=== PATIENT | female | born 1965 | race Caucasian/White ===

== ENCOUNTER → 2023-09-15 | Outpatient (CLI) | payer BC | END | disposition home or self-care (01) | LOC: RAD 14:49 | PROVIDERS: ATTEND Nurse Practitioner Family | DX: K82.4 Cholesterolosis of gallbladder (principal); N85.4 Malposition of uterus; D18.09 Hemangioma of other sites; R10.9 Unspecified abdominal pain | CPT/HCPCS: 76700; 76830; 76856; 93976 ==

== ENCOUNTER 2024-01-27 15:53 | Outpatient (CLI) | payer BC ==
[2024-01-27] MEDS ORDERED: GADOTERATE MEGLUMINE 7.5 MMOL/15 ML VIAL IV ONE (17:38)
== END 2024-01-27 23:59 | disposition home or self-care (01) ==
LOC: MRI 15:53
PROVIDERS: ATTEND Nurse Practitioner Family
DX: D25.2 Subserosal leiomyoma of uterus (principal); R10.9 Unspecified abdominal pain
CPT/HCPCS: 72197; A9575

== ENCOUNTER 2024-07-02 09:49 | Day surgery (SDC) | payer BC ==
[2024-07-02] VITALS (16 sets, daily range): BP systolic 96–128; BP diastolic 57–78; PULSE 56–92; RESP 11–18; O2SAT 10–100
[~2024-07-02] VITALS: Ht 165.1 cm; Wt 75.0 kg
[~2024-07-02 09:49] MED LIST: AMPH10TA2
[2024-07-02] MEDS ORDERED: MIDAZolam 1 MG/ML 5ML VIAL ONE ×2 (11:11→11:31)
[2024-07-02] MEDS ORDERED: fentaNYL/PF 50MCG/1 ML 2ML syringe ONE ×2 (11:11→11:22)
== END 2024-07-02 12:42 | disposition home or self-care (01) ==
LOC: GI LAB 09:49
PROVIDERS: ATTEND Internal Medicine Gastroenterology
DX: Z09 Encounter for follow-up examination after completed treatment for conditions other than malignant neoplasm (principal); K63.5 Polyp of colon; K64.8 Other hemorrhoids; Z86.0100 Personal history of colon polyps, unspecified
CPT/HCPCS: 45380; 45385; 99152; J2250; J3010; J7030; Z7512; 99153; A4620; C1889